=== PATIENT | female | born 1960 | race Caucasian/White ===

== ENCOUNTER 2022-02-15 17:11 | Emergency (ER) | payer BC, OTHER ==
[2022-02-15] MEDS: Silver Nitrate Applicator Each TOP ONE (17:46)
[2022-02-15] MEDS: Oxymetazoline 0.05% Nasal Spray 30 ML Bottle NAS ONE (17:46)
[2022-02-15 18:11] VITALS: BP 172/71; PULSE 93
== END 2022-02-15 18:28 | disposition home or self-care (01) ==
LOC: JP.ED 17:11
DX: R04.0 Epistaxis (principal); R03.0 Elevated blood-pressure reading, without diagnosis of hypertension; Z91.012 Allergy to eggs; Z91.018 Allergy to other foods; Z88.0 Allergy status to penicillin; Z88.2 Allergy status to sulfonamides; Z88.6 Allergy status to analgesic agent
CPT/HCPCS: 30901; 99283; A9270

== ENCOUNTER 2022-02-17 08:56 | Emergency (ER) | payer OTHER ==
[2022-02-17 09:20] VITALS: BP 157/84; PULSE 97
== END 2022-02-17 10:31 ==
LOC: JP.ED 08:56
DX: R04.0 Epistaxis (principal); D62 Acute posthemorrhagic anemia; R03.0 Elevated blood-pressure reading, without diagnosis of hypertension; Z91.012 Allergy to eggs; Z91.018 Allergy to other foods; Z88.0 Allergy status to penicillin; Z88.2 Allergy status to sulfonamides; Z88.6 Allergy status to analgesic agent
CPT/HCPCS: 36415; 85025; 85610; 85730; 86850; 86900; 86901; 99285

== ENCOUNTER 2022-03-07 08:35 | Day surgery (SDC) | payer OTHER ==
[2022-03-07] MEDS ORDERED: Propofol 200 MG/20 ML SDV ONE ×2 (09:14→10:35)
[2022-03-07] MEDS ORDERED: fentaNYL 50 MCG/ML SDV ONE (09:14)
[2022-03-07] MEDS ORDERED: Midazolam 1 MG/ML 2 ML SDV ONE (09:14)
[2022-03-07] MEDS ORDERED: Sodium Chloride 0.9% 1,000 ML IV SCH (09:15)
[2022-03-07 11:47] VITALS: BP 109/41; PULSE 87
== END 2022-03-07 12:03 | disposition home or self-care (01) ==
LOC: JP.SDS 08:35
PROVIDERS: ATTEND Surgery
DX: Z12.11 Encounter for screening for malignant neoplasm of colon (principal); K56.2 Volvulus; Z88.0 Allergy status to penicillin; Z88.2 Allergy status to sulfonamides; Z88.1 Allergy status to other antibiotic agents; Z91.012 Allergy to eggs
CPT/HCPCS: 45378; J2250; J2704; J3010; J7030

== ENCOUNTER 2024-06-17 01:05 | Emergency (ER) | payer MEDICARE, OTHER ==
[2024-06-17 01:45] LABS: APPEARANCE,URINE CLEAR (CLEAR); BILIRUBIN,URINE NEGATIVE (NEGATIVE); COLOR,URINE YELLOW (YELLOW); GLUCOSE,URINE NEGATIVE (NEGATIVE); KETONES,URINE NEGATIVE (NEGATIVE); LEUKOCYTE ESTERASE,URINE NEGATIVE (NEGATIVE); NITRITE,URINE NEGATIVE (NEGATIVE); OCCULT BLOOD,URINE TRACE-INTACT (NEGATIVE); PROTEIN,URINE NEGATIVE (NEGATIVE); UROBILINOGEN,URINE 0.2 EU/dL (0.2-1.0)
[2024-06-17 01:53] VITALS: BP 147/74; PULSE 103
[2024-06-17 03:40] LABS: AMORPHOUS SEDIMENT,URINE NOT SEEN; BACTERIA,URINE FEW; EPITHELIAL CELLS,URINE NOT SEEN; MUCUS,URINE NOT SEEN; RBC,URINE 0-5 (0-5); WBC,URINE 0-5 (0-5)
[2024-06-17 05:07] LABS: BASOPHILS ABSOLUTE AUTO 0.03 K/uL (0.00-0.10); BASOPHILS PERCENT AUTO 0.3 % (0.1-1.3); EOSINOPHILS ABSOLUTE AUTO 0.09 K/uL (0.00-0.40); EOSINOPHILS PERCENT AUTO 0.8 % (0.0-5.4); HEMATOCRIT 37.3 % (34.3-46.0); HEMOGLOBIN 13.1 g/dL (11.2-15.5); IMMATURE GRAN ABSOLUTE AUTO 0.03 K/uL (0.00-0.23); IMMATURE GRAN PERCENT AUTO 0.3 % (0.0-0.7); LYMPHOCYTES ABSOLUTE AUTO 2.29 K/uL (0.8-3.3); LYMPHOCYTES PERCENT AUTO 20.1 % (11.4-47.7); MEAN CORPUSCULAR HEMOGLOBIN 31.6 pg (31.6-35.5); MEAN CORPUSCULAR HGB CONC 35.1 g/dL (31.6-35.5); MEAN CORPUSCULAR VOLUME 89.9 fL (81.4-99.0); MONOCYTES ABSOLUTE AUTO 0.76 K/uL (0.20-0.90); MONOCYTES PERCENT AUTO 6.7 % (3.3-12.6); NEUTROPHILS ABSOLUTE AUTO 8.22 K/uL (1.0-7.6); NEUTROPHILS PERCENT AUTO 71.8 % (40.0-78.1); PLATELET COUNT,PLT 188 K/uL (130-375); RED BLOOD CELL COUNT 4.15 M/uL (3.77-5.24); WHITE BLOOD CELL COUNT,WBC 11.4 K/uL (3.2-11.0)
[2024-06-17 05:27] LABS: ANION GAP 10.1 mmol/L (5.0-14.0); BLOOD UREA NITROGEN,BUN 24 mg/dL (7-18); C-REACTIVE PROTEIN < 0.50 mg/dL (<0.50); CARBON DIOXIDE,CO2 31 mmol/L (21-32); CHLORIDE,CL 102 mmol/L (100-108); CREATININE 1.2 mg/dL (0.6-1.0); EST CRCL DRUG DOSING (CG) 42.06 mL/min; ESTIMATED GFR 50 mL/min (>60); GLUCOSE RANDOM 110 mg/dL (74-106); POTASSIUM,K 4.1 mmol/L (3.6-5.2); SODIUM,NA 139 mmol/L (140-148)
== END 2024-06-17 06:11 | disposition home or self-care (01) ==
LOC: JP.ED 01:05
DX: S39.011A Strain of muscle, fascia and tendon of abdomen, initial encounter (principal); I10 Essential (primary) hypertension; Z90.49 Acquired absence of other specified parts of digestive tract; Z88.2 Allergy status to sulfonamides; Z88.0 Allergy status to penicillin; Z88.1 Allergy status to other antibiotic agents; Z91.018 Allergy to other foods; Z91.012 Allergy to eggs; Z79.899 Other long term (current) drug therapy; X58.XXXA Exposure to other specified factors, initial encounter
CPT/HCPCS: 36415; 80048; 81001; 85025; 86140; 99284

== ENCOUNTER 2024-12-21 09:09 | Day surgery (SDC) | payer MEDICARE ==
[~2024-12-21 09:09] MED LIST: Clindamycin in 0.9 % Sod Chlor 600 MG in Premix Bag 1 BAG IV ONE
[2024-12-21] MEDS ORDERED: Propofol 200 MG/20 ML SDV ONE ×2 (09:35→10:54)
[2024-12-21] MEDS ORDERED: fentaNYL 100 MCG/2 ML SDV ONE (09:35)
[2024-12-21] MEDS ORDERED: Midazolam 1 MG/ML 2 ML SDV ONE (09:35)
[2024-12-21] MEDS: Lactated Ringers 1,000 ML IV SCH (10:01)
[2024-12-21] MEDS: Clindamycin in 0.9 % Sod Chlor 600 MG in Premix Bag 1 BAG IV ONE (10:50)
[2024-12-21] MEDS: Lidocaine 1% with EPINEPHrine 1:100,000 50 ML MDV ONE (11:10)
[2024-12-21] MEDS: Lidocaine 1% w/EPINEPHrine 50 ML, Sodium Bicarbonate 5 MEQ in Sodium Chloride 0.9% 950 ML INJECT SCH (11:29)
[2024-12-21 13:08] VITALS: BP 132/67; PULSE 75
== END 2024-12-21 13:25 | disposition home or self-care (01) ==
LOC: JP.SDS 09:09
PROVIDERS: ATTEND Surgery
DX: I87.2 Venous insufficiency (chronic) (peripheral) (principal); I10 Essential (primary) hypertension; E66.9 Obesity, unspecified; Z88.0 Allergy status to penicillin; Z91.012 Allergy to eggs; Z91.018 Allergy to other foods; Z79.899 Other long term (current) drug therapy
CPT/HCPCS: 01930; 36475; 36476; 76998; J0737; J1642; J2250; J2704; J3010; J7030; J7120; J3490